=== PATIENT | male | born 1975 | race Caucasian/White ===

== ENCOUNTER 2016-02-23 10:26 | Emergency (ER) | payer BC, MEDICAID ==
[~2016-02-23] VITALS: Ht 177.8 cm; Wt 105.0 kg
[~2016-02-23 10:26] MED LIST: DICL50TA3 PO; METHO500 PO; ZOFR4TAB3 PO
[2016-02-23 10:27] VITALS: BP 128/88; PULSE 85; RESP 16; TEMP 99; O2SAT 98
--- NOTE | 2016-02-23 10:49 | PD ---
HPI Chief Complaint: Abdominal Pain Time Seen by Provider: 10:38 Travel History International Travel<30 days: No Contact w/Intl Traveler<30days: No Traveled to known affect area: No History of Present Illness HPI 40-year-old male presents status post fall thru attic ceiling onto a sink in his garage hitting his left upper abdomen. He hit his head after hitting his abdomen and he thinks he blacked out for a small amount but he can't recall all the details. He currently notes pain to his head and his left upper abdomen area with nausea. He denies other concurrent complaints. He went to an urgent care and was referred here. Quality pain is sharp. Severity is moderate. He states he thinks he fell approximately 10 feet and shows me a picture PFSH Past Medical History Diminished Hearing: No Gastrointestinal Disorders: Yes (ULCER OR PREVIOUS GASTRIC PROBLEM) Immunizations Current: Yes Ulcer: Yes (GASTRIC ULCER BY HX) Past Surgical History Oral Surgery: Yes (ROOT CANAL) Social History Alcohol Use: No Tobacco Use: No Substance Use: No Allergies-Medications (Allergen,Severity, Reaction): Coded Allergies: No Known Allergies (Verified , 02/23/16) Reported Meds & Prescriptions Reported Meds & Active Scripts Active No Active Prescriptions or Reported Medications Review of Systems Except as stated in HPI: all other systems reviewed are Neg Physical Exam Narrative General: 40 y/o patient in no apparent distress Skin: trauma noted to abdomen with small amount of ecchymosis just inferior to his umbilicus, abrasion to left leg Eyes: Pupils equal NECK: no pain with palpation in midline, mild left trapezius pain, nexus criteria negative Cardiovascular: Regular rate and rhythm Respiratory: Normal respiratory effort noted, clear to auscultation bilaterally Abdomen: soft, tender to palpation left upper abdomen, nondistended Back: No step-offs, midline spine nontender with palpation Extremities: No pain over main joints Neuro: awake, alert, sensation and motor grossly intact Data Data Last Documented VS Vital Signs Date Time Temp Pulse Resp B/P Pulse Ox O2 Delivery O2 Flow Rate FiO2 02/23/16 13:43 85 16 128/72 100 02/23/16 11:35 Room Air 02/23/16 10:27 99.0 Orders Complete Blood Count With Diff (02/23/16 10:42) Comprehensive Metabolic Panel (02/23/16 10:42) Urinalysis - C+S If Indicated (02/23/16 10:42) Ct Abd/Pel W Iv Contrast(Rout) (02/23/16 ) Iv Access Insert/Monitor (02/23/16 10:42) Oximetry (02/23/16 10:42) Chest, Pa & Lat (02/23/16 ) Prothrombin Time / Inr (Pt) (02/23/16 10:42) Act Partial Throm Time (Ptt) (02/23/16 10:42) Type And Screen (02/23/16 10:42) Ct Brain W/O Iv Contrast(Rout) (02/23/16 ) Iohexol 350 Inj (Omnipaque 350 Inj) (02/23/16 12:06) Labs Laboratory Tests Test 02/23/16 02/23/16 11:10 12:35 White Blood Count 9.9 TH/MM3 Red Blood Count 5.53 MIL/MM3 Hemoglobin 15.5 GM/DL Hematocrit 47.3 % Mean Corpuscular Volume 85.5 FL Mean Corpuscular Hemoglobin 28.0 PG Mean Corpuscular Hemoglobin 32.7 % Concent Red Cell Distribution Width 12.7 % Platelet Count 221 TH/MM3 Mean Platelet Volume 9.1 FL Neutrophils (%) (Auto) 60.3 % Lymphocytes (%) (Auto) 29.7 % Monocytes (%) (Auto) 6.3 % Eosinophils (%) (Auto) 2.8 % Basophils (%) (Auto) 0.9 % Neutrophils # (Auto) 5.9 TH/MM3 Lymphocytes # (Auto) 3.0 TH/MM3 Monocytes # (Auto) 0.6 TH/MM3 Eosinophils # (Auto) 0.3 TH/MM3 Basophils # (Auto) 0.1 TH/MM3 CBC Comment DIFF FINAL Differential Comment Prothrombin Time 10.2 SEC Prothromb Time International 0.9 RATIO Ratio Activated Partial 25.5 SEC Thromboplast Time Sodium Level 143 MEQ/L Potassium Level 3.9 MEQ/L Chloride Level 104 MEQ/L Carbon Dioxide Level 32.1 MEQ/L Anion Gap 7 MEQ/L Blood Urea Nitrogen 10 MG/DL Creatinine 0.82 MG/DL Estimat Glomerular Filtration 103 ML/MIN Rate Random Glucose 100 MG/DL Calcium Level 8.7 MG/DL Total Bilirubin 0.8 MG/DL Aspartate Amino Transf 14 U/L (AST/SGOT) Alanine Aminotransferase 16 U/L (ALT/SGPT) Alkaline Phosphatase 59 U/L Total Protein 7.5 GM/DL Albumin 3.7 GM/DL Blood Type B POSITIVE Blood Bank Comment Urine Collection Type CLEAN CATCH Urine Color YELLOW Urine Turbidity CLEAR Urine pH 7.0 Urine Specific [place] 1.015 Urine Protein NEG mg/dL Urine Glucose (UA) NEG mg/dL Urine Ketones NEG mg/dL Urine Occult Blood NEG Urine Nitrite NEG Urine Bilirubin NEG Urine Leukocyte Esterase NEG Urine RBC 0-3 /hpf Urine Squamous Epithelial 0-5 /hpf Cells Microscopic Urinalysis Comment CULT NOT INDICATED Urine Collection Time 12:35 [facility] Medical Decision Making Medical Screen Exam Complete: Yes Emergency Medical Condition: Yes Medical Record Reviewed: Yes (past history confirmed) Interpretation(s) CBC & BMP Diagram 02/23/16 11:10 Last [address] 02/23/16 0000 Signed Impressions: Service Date/Time: Tuesday, February 23, 2016 11:54 - CONCLUSION: Left maxillary sinus disease. Otherwise unremarkable exam. Dot Greco MD Chest X-Ray 02/23/16 0000 Signed Impressions: Service Date/Time: Tuesday, February 23, 2016 10:44 - CONCLUSION: No acute intrathoracic disease. The ribs appear to be grossly intact. Karl Brady MD Abdomen/Pelvis CT 02/23/16 0000 Signed Impressions: Service Date/Time: Tuesday, February 23, 2016 12:01 - CONCLUSION: Normal examination. Dot Greco MD Differential Diagnosis Splenic injury, fracture, contusion, pneumothorax... Narrative Course Will check blood work, imaging and reevaluate. Patient declines pain medication on initial evaluation ed workup no acute, Patient denies any new complaints, all questions answered. Patient knows that follow up is incumbent on them and to return to the emergency room immediately if new or worsening symptoms develop. Patient given strict return precautions, vitals reviewed and are normal, agrees to further workup as an outpatient. patient had requested mobic prescription for home pain control but left before I wrote while I was with another patient Diagnosis Primary Impression: Abdominal wall contusion Additional Impressions: Abdominal pain Qualified Code: R10.12 - Left upper quadrant pain Head pain Qualified Code: R51 - Nonintractable headache, unspecified chronicity pattern , unspecified headache type Patient Instructions: General Instructions Additional Instructions: return as needed, tylenol as needed, follow with primary Med/Other Pt SpecificInfo: No Change to Meds Scripts No Active Prescriptions or Reported Meds Disposition: 01 DISCHARGE HOME Condition: Stable Jazmin Morin MD Feb 23, 2016 10:49
--- NOTE | 2016-02-23 11:10 | RADHPO ---
EXAM DATE/TIME: 02/23/2016 10:44 [facility] COMPARISON: No previous studies available for comparison. INDICATIONS : Left lower rib pain post fall from attic. MEDICAL HISTORY : Ulcers. SURGICAL HISTORY : None. ENCOUNTER: Initial ACUITY: 3 days PAIN SCORE: 7/10 LOCATION: Left chest FINDINGS: PA and lateral views of the chest demonstrate the lungs to be symmetrically aerated without evidence of mass, infiltrate or effusion. The cardiomediastinal contours are unremarkable. Osseous structure s are intact. CONCLUSION: No acute intrathoracic disease. The ribs appear to be grossly intact. Karl Brady MD on February 23, 2016 at 11:06 Board Certified Radiologist. This report was verified electronically.
[2016-02-23 11:24] VITALS: RESP 16; O2SAT 98
[2016-02-23 11:26] LABS: CHLORIDE 104 MEQ/L (98-107); POTASSIUM 3.9 MEQ/L (3.5-5.1); SODIUM (NA) 143 MEQ/L (136-145)
[2016-02-23 11:30] LABS: ANION GAP 7 MEQ/L (5-15); APTT (PATIENT) 25.5 SEC (24.3-30.1); BICARBONATE 32.1 MEQ/L (21.0-32.0); BLOOD UREA NITROGEN 10 MG/DL (7-18); INTERNATIONAL NORMALIZED RATIO 0.9 RATIO; PROTHROMBIN TIME - PATIENT 10.2 SEC (9.8-11.6)
[2016-02-23 11:33] LABS: ALT (GPT) 16 U/L (12-78); AST (GOT) 14 U/L (15-37); AUTOMATED NEUTROPHIL # 5.9 TH/MM3 (1.8-7.7); BASOPHIL # 0.1 TH/MM3 (0-0.2); BASOPHIL % 0.9 % (0.0-2.0); EOSINOPHIL # 0.3 TH/MM3 (0-0.4); EOSINOPHIL % 2.8 % (0.0-4.0); GLOMERULAR FILTRATION RATE 103 ML/MIN (>89); HEMATOCRIT 47.3 % (39.0-51.0); HEMO FLAGS DIFF FINAL; LYMPH % 29.7 % (9.0-44.0); MEAN CELL VOLUME 85.5 FL (80.0-100.0); MEAN CORPUSCULAR HGB CONC 32.7 % (32.0-36.0); MONO % 6.3 % (0.0-8.0); NEUT % 60.3 % (16.0-70.0); PLATELET COUNT 221 TH/MM3 (150-450); RED BLOOD COUNT 5.53 MIL/MM3 (4.50-5.90); RED CELL DISTRIBUTION WIDTH 12.7 % (11.6-17.2); WHITE BLOOD COUNT 9.9 TH/MM3 (4.0-11.0)
[2016-02-23 11:35] VITALS: BP 135/76; PULSE 95; RESP 16; O2SAT 100
[2016-02-23 11:35] LABS: TOTAL BILIRUBIN ADULT 0.8 MG/DL (0.2-1.0)
[2016-02-23 11:36] LABS: ALKALINE PHOSPHATASE 59 U/L (45-117)
[2016-02-23] MEDS ORDERED: IOHEXOL 350 MG/ML 10 ML VIAL (for RAD DIAG) IV ONE (12:06)
--- NOTE | 2016-02-23 12:08 | RADHPO ---
EXAM DATE/TIME: 02/23/2016 11:54 [facility] COMPARISON: No previous studies available for comparison. INDICATIONS : Fell through a ceiling three days ago. Frontal head pain. RADIATION DOSE: 58.12 CTDIvol (mGy) MEDICAL HISTORY : None SURGICAL HISTORY : None. ENCOUNTER: Initial ACUITY: 3 days PAIN SCALE: 4/10 LOCATION: frontal TECHNIQUE: Multiple contiguous axial images were obtained of the head. Using automated exposure control and adjustment of the mA and/or kV according to patient size, radiation dose was kept as low as reasonably achievable to obtain optimal diagnostic quality images. FINDINGS: CEREBRUM: The ventricles are normal for age. No evidence of midline shift, mass lesion, hemorrha ge or acute infarction. No extra-axial fluid collections are seen. POSTERIOR FOSSA: The cerebellum and brainstem are intact. The 4th ventricle is midline. The cer ebellopontine angle is unremarkable. EXTRACRANIAL: The visualized portion of the orbits is intact. There is significant mucoperiosteal thickening identified within the left maxillary sinus. SKULL: The calvaria is intact. No evidence of skull fracture. CONCLUSION: Left maxillary sinus disease. Otherwise unremarkable exam. Dot Greco MD on February 23, 2016 at 12:05 Board Certified Radiologist. This report was verified electronically.
--- NOTE | 2016-02-23 12:16 | RADHPO ---
EXAM DATE/TIME: 02/23/2016 12:01 [facility] COMPARISON: No previous studies available for comparison. INDICATIONS : Fell through a ceiling three days ago. Left upper quadrant pain. IV CONTRAST: 95 cc Omnipaque 350 (iohexol) IV ORAL CONTRAST: No oral contrast ingested. RADIATION DOSE: 18.66 CTDIvol (mGy) MEDICAL HISTORY : None SURGICAL HISTORY : None. ENCOUNTER: Initial ACUITY: 3 days PAIN SCALE: 4/10 LOCATION: Left upper quadrant TECHNIQUE: Volumetric scanning of the abdomen and pelvis was performed. Using automated exposure control and ad justment of the mA and/or kV according to patient size, radiation dose was kept as low as reasonably achievable to obtain optimal diagnostic quality images. FINDINGS: LOWER LUNGS: The visualized lower lungs are clear. LIVER: Homogeneous density without lesion. There is no dilation of the biliary tree. No calcified gallston es. SPLEEN: Normal size without lesion. PANCREAS: Within normal limits. KIDNEYS: Normal in size and shape. There is no mass, stone or hydronephrosis. ADRENAL GLANDS: Within normal limits. VASCULAR: There is no aortic aneurysm. BOWEL/MESENTERY: The stomach, small bowel, and colon demonstrate no acute abnormality. There is no free intraperitone al air or fluid. ABDOMINAL WALL: Within normal limits. RETROPERITONEUM: There is no lymphadenopathy. BLADDER: No wall thickening or mass. REPRODUCTIVE: Within normal limits. INGUINAL: There is no lymphadenopathy or hernia. MUSCULOSKELETAL: Within normal limits for patient age. CONCLUSION: Normal examination. Dot Greco MD on February 23, 2016 at 12:14 Board Certified Radiologist. This report was verified electronically.
[2016-02-23 13:03] LABS: BLOOD, URINE NEG (NEG); GLUCOSE,URINE NEG (NEG); KETONE, URINE NEG (NEG); NITRITE,URINE NEG (NEG)
[2016-02-23 13:09] LABS: COMMENT (UR) CULT NOT INDICATED; CULTURE IF INDICATED CULT NOT INDICATED; METHOD OF COLLECTION CLEAN CATCH; RBC, URINE 0-3 /hpf (0-3); SQUAMOUS EPITHELIAL CELL URINE 0-5 /hpf (0-5); URINE COLOR YELLOW (YELLW/STRAW)
[2016-02-23 13:43] VITALS: BP 128/72
== END 2016-02-23 13:45 | disposition home or self-care (01) ==
LOC: PHED 10:26
DX: S30.1XXA Contusion of abdominal wall, initial encounter (principal); R51 Headache; W13.8XXA Fall from, out of or through other building or structure, initial encounter; Y92.89 Other specified places as the place of occurrence of the external cause; Y99.8 Other external cause status
CPT/HCPCS: 70450; 71020; 74177; 80053; 81001; 85025; 85610; 85730; 86850; 86900; 86901; 99284; Q9967

== ENCOUNTER 2017-04-19 13:19 | Emergency (ER) | payer BC, MEDICAID ==
[~2017-04-19] VITALS: Ht 180.3 cm; Wt 109.0 kg
[~2017-04-19 13:19] MED LIST changes: +AUGM875T3 PO; -DICL50TA3 PO; -METHO500 PO; -ZOFR4TAB3 PO
[2017-04-19 13:24] VITALS: BP 150/81; PULSE 77; RESP 18; TEMP 98; O2SAT 96
[2017-04-19] MEDS ORDERED: SODIUM CHLOR 0.9% 1000 ML INJ 1,000 ML IV ONE (15:45)
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
[2017-04-19 16:32] LABS: BILIRUBIN, URINE NEG (NEG); BLOOD, URINE NEG (NEG); GLUCOSE,URINE NEG (NEG); KETONE, URINE NEG (NEG); NITRITE,URINE NEG (NEG); PH, URINE 6.5 (5.0-8.5); URINE COLOR YELLOW (YELLW/STRAW); URINE LEUKOCYTE ESTERASE NEG (NEG)
[2017-04-19 16:38] LABS: AUTOMATED NEUTROPHIL # 5.7 TH/MM3 (1.8-7.7); BASOPHIL # 0.1 TH/MM3 (0-0.2); BASOPHIL % 0.9 % (0.0-2.0); EOSINOPHIL # 0.2 TH/MM3 (0-0.4); EOSINOPHIL % 2.5 % (0.0-4.0); HEMATOCRIT 41.7 % (39.0-51.0); LYMPH % 30.2 % (9.0-44.0); LYMPHOCYTE # 2.9 TH/MM3 (1.0-4.8); MEAN CELL VOLUME 84.3 FL (80.0-100.0); MEAN CORPUSCULAR HEMOGLOBIN 28.3 PG (27.0-34.0); MEAN CORPUSCULAR HGB CONC 33.6 % (32.0-36.0); MEAN PLATELET VOLUME 9.2 FL (7.0-11.0); MONO % 6.7 % (0.0-8.0); MONOCYTE # 0.6 TH/MM3 (0-0.9); NEUT % 59.7 % (16.0-70.0); PLATELET COUNT 172 TH/MM3 (150-450); RED BLOOD COUNT 4.95 MIL/MM3 (4.50-5.90); RED CELL DISTRIBUTION WIDTH 12.1 % (11.6-17.2); WHITE BLOOD COUNT 9.5 TH/MM3 (4.0-11.0)
[2017-04-19 16:44] LABS: MUCUS URINE FEW /lpf (OCC); RBC, URINE 0-3 /hpf (0-3); SQUAMOUS EPITHELIAL CELL URINE 0-5 /hpf (0-5); WBC, URINE 0-2 /hpf (0-5)
[2017-04-19 16:53] LABS: CHLORIDE 106 MEQ/L (98-107); SODIUM (NA) 140 MEQ/L (136-145)
[2017-04-19 16:56] LABS: ALBUMIN 3.6 GM/DL (3.4-5.0); BICARBONATE 28.6 MEQ/L (21.0-32.0); BLOOD UREA NITROGEN 9 MG/DL (7-18); CALCIUM 8.8 MG/DL (8.5-10.1); GLUCOSE,RANDOM 72 MG/DL (74-106)
[2017-04-19 16:59] LABS: ALT (GPT) 16 U/L (12-78); AST (GOT) 22 U/L (15-37); CREATININE 0.84 MG/DL (0.60-1.30); GLOMERULAR FILTRATION RATE 100 ML/MIN (>89)
[2017-04-19 17:01] LABS: TOTAL BILIRUBIN ADULT 0.3 MG/DL (0.2-1.0); TOTAL PROTEIN 7.7 GM/DL (6.4-8.2)
[2017-04-19 17:02] LABS: ALKALINE PHOSPHATASE 62 U/L (45-117)
--- NOTE | 2017-04-19 17:11 | RADRPT ---
EXAM DATE/TIME: 04/19/2017 15:58 [facility] COMPARISON: CHEST PA & LAT, February 23, 2016, 10:44. INDICATIONS : Dizziness for 3 days. MEDICAL HISTORY : None. SURGICAL HISTORY : None. ENCOUNTER: Initial ACUITY: 3 days PAIN SCORE: 0/10 LOCATION: Left chest FINDINGS: A single view of the chest demonstrates the lungs to be symmetrically aerated without evidence of mas s, infiltrate or effusion. The cardiomediastinal contours are unremarkable. Osseous structures are intact. CONCLUSION: 1. No acute cardiopulmonary findings identified. Exam is stable compared to prior dated 02/23/16 Rc Maxwell MD on April 19, 2017 at 16:40 Board Certified Radiologist. This report was verified electronically.
[2017-04-19 17:30] VITALS: BP 145/82; PULSE 60; RESP 18; O2SAT 98
--- NOTE | 2017-04-19 17:56 | PD ---
Physical Exam Narrative Patient signed out to me by Dr. Mark. Please see his documentation for complete details. Briefly, patient is a 41-year-old male who comes in complaining of an episode of shaking chills Sunday night and feeling very tired and fatigued for the past 2 days. He reports sleeping for 2 days, and feeling dehydrated. When asked if he had any pain, he said no. His exam shows no acute abnormalities. Data Data Last Documented VS Vital Signs Date Time Temp Pulse Resp B/P (MAP) Pulse Ox O2 Delivery O2 Flow Rate FiO2 04/19/17 17:30 60 18 145/82 (103) 98 Room Air 04/19/17 13:24 98.0 Orders Orders Complete Blood Count With Diff (04/19/17 15:38) Comprehensive Metabolic Panel (04/19/17 15:38) Influenzae A/B Antigen (04/19/17 15:38) Monoscreen (04/19/17 15:38) Chest, Single Ap (04/19/17 ) Urinalysis - C+S If Indicated (04/19/17 15:38) Sodium Chlor 0.9% 1000 Ml Inj (Ns 1000 M (04/19/17 15:45) Labs Laboratory Tests Test 04/19/17 15:55 04/19/17 16:30 Urine Color YELLOW Urine Turbidity CLEAR Urine pH 6.5 Urine Specific [place] 1.020 Urine Protein NEG mg/dL Urine Glucose (UA) NEG mg/dL Urine Ketones NEG mg/dL Urine Occult Blood NEG Urine Nitrite NEG Urine Bilirubin NEG Urine Urobilinogen 0.2 MG/DL Urine Leukocyte Esterase NEG Urine RBC 0-3 /hpf Urine WBC 0-2 /hpf Urine Squamous Epithelial Cells 0-5 /hpf Urine Mucus FEW /lpf Microscopic Urinalysis Comment CULT NOT INDICATED White Blood Count 9.5 TH/MM3 Red Blood Count 4.95 MIL/MM3 Hemoglobin 14.0 GM/DL Hematocrit 41.7 % Mean Corpuscular Volume 84.3 FL Mean Corpuscular Hemoglobin 28.3 PG Mean Corpuscular Hemoglobin Concent 33.6 % Red Cell Distribution Width 12.1 % Platelet Count 172 TH/MM3 Mean Platelet Volume 9.2 FL Neutrophils (%) (Auto) 59.7 % Lymphocytes (%) (Auto) 30.2 % Monocytes (%) (Auto) 6.7 % Eosinophils (%) (Auto) 2.5 % Basophils (%) (Auto) 0.9 % Neutrophils # (Auto) 5.7 TH/MM3 Lymphocytes # (Auto) 2.9 TH/MM3 Monocytes # (Auto) 0.6 TH/MM3 Eosinophils # (Auto) 0.2 TH/MM3 Basophils # (Auto) 0.1 TH/MM3 CBC Comment DIFF FINAL Differential Comment Blood Urea Nitrogen 9 MG/DL Creatinine 0.84 MG/DL Random Glucose 72 MG/DL Total Protein 7.7 GM/DL Albumin 3.6 GM/DL Calcium Level 8.8 MG/DL Alkaline Phosphatase 62 U/L Aspartate Amino Transf (AST/SGOT) 22 U/L Alanine Aminotransferase (ALT/SGPT) 16 U/L Total Bilirubin 0.3 MG/DL Sodium Level 140 MEQ/L Potassium Level 4.0 MEQ/L Chloride Level 106 MEQ/L Carbon Dioxide Level 28.6 MEQ/L Anion Gap 5 MEQ/L Estimat Glomerular Filtration Rate 100 ML/MIN MDM Supervised Visit with DEXTER: No Narrative Course I discussed the patient's results with him. I told him that his blood work revealed no acute abnormalities, his flu swab was negative, his chest x-ray shows no acute abnormalities. He then started to tell me that he had a headache , but says that he has a chronic headache that he experienced some confusion this morning, but cannot really tell me what it is that is bothering her worrying him. He was offered a CAT scan of his head. I explained to him that he is not really experiencing any meningeal signs or symptoms as he has no fever , no neck stiffness, his labs are completely normal. Again I asked him what he is worried about, but he is unable to tell me. He is offered further testing and medication for his headache, however he declines at this time. He is advised to rest, drink plenty of fluids, take Tylenol or ibuprofen. Advised follow-up with his doctor. Advised return to the ED as needed for any worsening symptoms. Diagnosis Primary Impression: Viral syndrome Patient Instructions: General Instructions, Viral Syndrome (ED) Additional Instruction: Drink plenty of fluids. Take Tylenol or ibuprofen as needed for pain or fever. Follow-up with your doctor. Return to the ED as needed for any worsening symptoms. Scripts No Active Prescriptions or Reported Meds Disposition: 01 DISCHARGE HOME Condition: Stable Melinda Moscoso MD Apr 19, 2017 17:56
[2017-04-19 19:46] LABS: MONOSCREEN NEG (NEG)
== END 2017-04-19 18:11 | disposition home or self-care (01) ==
LOC: PHED 13:19 → PHEFT 18:11
DX: B34.9 Viral infection, unspecified (principal); R53.81 Other malaise; R11.2 Nausea with vomiting, unspecified; R19.7 Diarrhea, unspecified; M79.1 Myalgia
CPT/HCPCS: 71045; 80053; 81001; 85025; 86308; 87804; 96360; 99284; J7030